=== PATIENT | female | born 1955 | race African-American/Black ===

== ENCOUNTER 2019-09-13 11:43 | Inpatient (IN) | payer MEDICARE, MEDICAID ==
[~2019-09-13] VITALS: Ht 160 cm; Wt 170.1 kg
[~2019-09-13 11:43] MED LIST: AMLO10TA80 PO; BACL-141 MT; BISA10SU62 RC; CHOL200026 PO; CLON0.1T PO; DOCU-150 PO; ESOM20CA PO; FERR325T6 PO; FOLI1POW MC; FURO-151 PO; HYDR100T26 PO; ISOS30TA12 PO; LISI40TA4 PO; METF-414 PO; METO100T16 PO; MOM MT; NA P230E RC; NEPVIT PO; TRAM50TA3 PO
[2019-09-13] MEDS ORDERED: SODIUM CHLORIDE 0.9% 1000ML BAG (SEPSIS BOLUS) IV ONE (12:30)
[2019-09-13 13:03] LABS: HEMATOCRIT. 33.5 % (36.0-48.0); HEMOGLOBIN. 10.7 g/dL (12.0-16.0); MEAN CORPUSCULAR HEMOGLOBIN 28.4 pg (28.0-32.0); MEAN CORPUSCULAR VOLUME 88.8 fL (81.0-99.0); MEAN PLATELET VOLUME 8.5 fl (7.4-10.4); PLATELET 214 x1000/uL (130-400); RED BLOOD CELL COUNT 3.77 mill/uL (4.2-5.4); RED CELL DISTRIBUTION WIDTH 17.7 % (11.6-14.6)
[2019-09-13 13:09] LABS: CHLORIDE 103 mEq/L (98-107)
[2019-09-13 13:11] LABS: INR 1.3; PROTHROMBIN TIME 13.6 sec (9.6-11.0)
[2019-09-13 13:25] LABS: CLARITY URINE CLEAR (CLEAR); COLOR URINE YELLOW (YELLOW); KETONES URINE NEGATIVE (NEGATIVE); LEUKOCYTE ESTERASE URINE 1+ (NEGATIVE); NITRITE URINE POSITIVE (NEGATIVE); OCCULT BLOOD URINE TRACE (NEGATIVE); PROTEIN URINE 2+ (NEGATIVE); SPECIFIC GRAVITY URINE 1.013 (1.005-1.030)
[2019-09-13 13:34] LABS: PLATELET ESTIMATE NORMAL
[2019-09-13] MEDS ORDERED: VANCOMYCIN 1 G PREMIX 200 ML IV ONE (14:45)
[2019-09-13] MEDS ORDERED: PIPERACILLIN/TAZ 3.375G PREMIX 50 ML IV ONE (14:45)
[2019-09-13] MEDS ORDERED: ACETAMINOPHEN 325MG TABLET PO ONE (16:00)
[2019-09-13] MEDS ORDERED: ASPIRIN 325MG EC TABLET PO ONE (16:15)
[2019-09-13] MEDS ORDERED: ACETAMINOPHEN 325MG TABLET PO PRN (16:30)
[2019-09-13] MEDS ORDERED: DOCUSATE SODIUM 100MG CAPSULE PO PRN (16:30)
[2019-09-13] MEDS ORDERED: CLONIDINE 0.2MG TABLET PO ONE (16:30)
[2019-09-13] MEDS ORDERED: AMLODIPINE 10MG TABLET PO ONE (16:30)
[2019-09-13] MEDS ORDERED: HYDRALAZINE HCL 100MG TABLET PO ONE (16:30)
[2019-09-13] MEDS ORDERED: LORAZEPAM 0.5MG TABLET PO PRN (16:30)
[2019-09-13] MEDS ORDERED: ONDANSETRON HCL 4MG/2ML INJ IV PRN (16:30)
[2019-09-13] MEDS ORDERED: NA PHOS,M-B/NA PHOS,DI-BA ENEMA 118ML PR PRN (16:30)
[2019-09-13] MEDS ORDERED: ACETAMINOPHEN 650MG SUPP PR PRN (16:30)
[2019-09-13] MEDS ORDERED: DIPHENHYDRAMINE 50MG/ML VIAL IV PRN (16:30)
[2019-09-13] MEDS ORDERED: IPRATROPIUM/ALBUTEROL 0.5-3(2.5)MG/3ML NEB NEB PRN (16:30)
[2019-09-13 17:29] LABS: BG CARBOXYHEMOGLOBIN 0.5 % (0.5-1.5); BG DEOXYHEMOGLOBIN 2.6 % (0.0-5.0); BG FRACTION INSPIRED OXYGEN 32; BG HCO3 ACT 29.7 mmol/L (22.0-26.0); BG OXYGEN SATURATION 97.4 % (92.0-98.5); BG OXYHEMOGLOBIN 96.9 % (94.0-97.0); BG PCO2 49.6 mmHg (35.0-45.0); BG PH 7.395 (7.350-7.450); BG PO2 97.2 mmHg (75.0-100.0); BG SAMPLE SITE RIGHT RADIAL; BG TOTAL HEMOGLOBIN 11.1 g/dL (12.0-18.0); BG VENT MODE NASAL CANNULA
[2019-09-13 20:00] VITALS: BP 148/67
[2019-09-13] MEDS ORDERED: CEFTRIAXONE 1 G PREMIX 50 ML IV SCH (20:00)
[2019-09-13] MEDS ORDERED: AZITHROMYCIN 500 MG in DEXT 5% WATER 250 ML IV SCH (20:00)
[2019-09-13] MEDS ORDERED: ENOXAPARIN 40MG/0.4ML SYR SUBCUT SCH (21:00)
[2019-09-13] MEDS: DEXT 5%/0.45% NACL 1000ML 1,000 ML IV SCH (23:32)
[2019-09-13] MEDS: FAMOTIDINE 20MG/2ML VIAL IV SCH (23:33)
[2019-09-14] MEDS: CLONIDINE 0.1MG TABLET PO PRN ×2 (00:26→09:00)
[2019-09-14 08:15] VITALS: BP 201/75
[2019-09-14] MEDS: DEXT 5%/0.45% NACL 1000ML 1,000 ML IV SCH ×2 (08:56→21:34)
[2019-09-14] MEDS: FAMOTIDINE 20MG/2ML VIAL IV SCH (08:56)
[2019-09-14] MEDS: ASPIRIN 81MG TABLET PO SCH (08:56)
[2019-09-14 11:10] LABS: BG BASE EXCESS 4.6 mmol/L (-2.0-2.0); BG CARBOXYHEMOGLOBIN 0.7 % (0.5-1.5); BG DEOXYHEMOGLOBIN 18.4 % (0.0-5.0); BG HCO3 ACT 29.4 mmol/L (22.0-26.0); BG METHEMOGLOBIN 0.1 % (0.0-1.5); BG OXYGEN SATURATION 81.5 % (92.0-98.5); BG OXYHEMOGLOBIN 80.8 % (94.0-97.0); BG PCO2 44.4 mmHg (35.0-45.0); BG PH 7.439 (7.350-7.450); BG PO2 45.5 mmHg (75.0-100.0); BG SAMPLE SITE RIGHT RADIAL; BG TOTAL HEMOGLOBIN 11.8 g/dL (12.0-18.0); BG VENT MODE ROOM AIR
[2019-09-14] MEDS: AMLODIPINE 5MG TABLET PO SCH (11:14)
[2019-09-14 12:00] VITALS: BP 124/91
[2019-09-14] MEDS: CEFTRIAXONE 1 G PREMIX 50 ML IV SCH (13:40)
[2019-09-14] MEDS ORDERED: FUROSEMIDE 40MG/4ML VIAL IVP ONE (14:00)
[2019-09-14] MEDS ORDERED: ALBUTEROL 6.7GM HFA INHALER ORI PRN (14:00)
[2019-09-14] MEDS ORDERED: AZITHROMYCIN 500 MG in DEXT 5% WATER 250 ML IV SCH (14:00)
[2019-09-14 14:25] LABS: BG BASE EXCESS -0.4 mmol/L (-2.0-2.0); BG CARBOXYHEMOGLOBIN 0.6 % (0.5-1.5); BG DEOXYHEMOGLOBIN 5.6 % (0.0-5.0); BG HCO3 ACT 23.6 mmol/L (22.0-26.0); BG OXYGEN SATURATION 94.4 % (92.0-98.5); BG OXYHEMOGLOBIN 93.8 % (94.0-97.0); BG PCO2 36.6 mmHg (35.0-45.0); BG PH 7.428 (7.350-7.450); BG PO2 70.4 mmHg (75.0-100.0); BG SAMPLE SITE RIGHT RADIAL; BG TOTAL HEMOGLOBIN 11.9 g/dL (12.0-18.0); BG VENT MODE NASAL CANNULA
[2019-09-14 15:09] LABS: D-DIMER 0.42 mg/L FEU (<0.50); INR 1.2; PROTHROMBIN TIME 13.1 sec (9.6-11.0)
[2019-09-14] MEDS: LOSARTAN POTASSIUM 25 MG TABLET PO SCH (15:20)
[2019-09-14] MEDS: HYDRALAZINE HCL 50MG TABLET PO SCH ×2 (15:21→21:34)
[2019-09-14] MEDS: METOPROLOL TARTRATE 25MG TABLET PO SCH ×2 (15:21→21:35)
[2019-09-14 15:24] LABS: CHLORIDE 98 mEq/L (98-107)
[2019-09-14 15:31] LABS: BASOPHILS % 1.3 % (0.0-2.0); EOSINOPHILS % 0.1 % (0.0-5.0); HEMATOCRIT. 36.8 % (36.0-48.0); HEMOGLOBIN. 11.8 g/dL (12.0-16.0); LYMPHOCYTES % 22.4 % (20.0-50.0); MEAN CORPUSCULAR HEMOGLOBIN 28.3 pg (28.0-32.0); MEAN CORPUSCULAR VOLUME 88.1 fL (81.0-99.0); MEAN PLATELET VOLUME 8.6 fl (7.4-10.4); MONOCYTES % 11.6 % (2.0-8.0); NEUTROPHILS % 64.6 % (40.0-76.0); PLATELET 185 x1000/uL (130-400); RED BLOOD CELL COUNT 4.18 mill/uL (4.2-5.4); RED CELL DISTRIBUTION WIDTH 16.9 % (11.6-14.6)
[2019-09-14 15:32] LABS: CREATINE KINASE 71 IU/L (26-192); LDL CHOLESTEROL 76 mg/dL (5-100)
[2019-09-14 15:33] LABS: CREATINE KINASE MB FRACTION < 1.0 ng/mL (0.5-3.6); HDL CHOLESTEROL 38 mg/dL (40-59); T4 FREE 1.19 ng/dL (0.76-1.46)
[2019-09-14] MEDS ORDERED: POTASSIUM CHLORIDE 20MEQ TABLET SR PO NR (16:00)
[2019-09-14 16:09] VITALS: BP 173/89
[2019-09-14] MEDS: ENOXAPARIN 120MG/0.8ML SYR SUBCUT SCH (18:09)
[2019-09-14 20:00] VITALS: BP 186/104
[2019-09-14] MEDS: FUROSEMIDE 40MG/4ML VIAL IVP SCH (21:34)
[2019-09-14] MEDS: ATORVASTATIN CALCIUM 40MG TABLET PO SCH (21:35)
[2019-09-15] VITALS (7 sets, daily range): BP systolic 131–189; BP diastolic 54–97
[2019-09-15] MEDS: HYDRALAZINE HCL 50MG TABLET PO SCH ×3 (05:54→21:32)
[2019-09-15] MEDS: HYDROCODONE/ACETAMINOPHEN 5/325MG TABLET PO PRN ×2 (05:55→17:22)
[2019-09-15] MEDS: ENOXAPARIN 120MG/0.8ML SYR SUBCUT SCH ×2 (05:56→16:37)
[2019-09-15] MEDS: DEXT 5%/0.45% NACL 1000ML 1,000 ML IV SCH (08:30)
[2019-09-15 09:01] LABS: BG BASE EXCESS 1.7 mmol/L (-2.0-2.0); BG CARBOXYHEMOGLOBIN 0.5 % (0.5-1.5); BG DEOXYHEMOGLOBIN 11.3 % (0.0-5.0); BG FRACTION INSPIRED OXYGEN 36; BG HCO3 ACT 26.1 mmol/L (22.0-26.0); BG METHEMOGLOBIN 0.3 % (0.0-1.5); BG OXYGEN SATURATION 88.6 % (92.0-98.5); BG OXYHEMOGLOBIN 87.9 % (94.0-97.0); BG PCO2 40.3 mmHg (35.0-45.0); BG PH 7.429 (7.350-7.450); BG PO2 54.4 mmHg (75.0-100.0); BG SAMPLE SITE RIGHT RADIAL; BG VENT MODE NASAL CANNULA
[2019-09-15] MEDS: ASPIRIN 81MG TABLET PO SCH (09:29)
[2019-09-15] MEDS: AMLODIPINE 5MG TABLET PO SCH (09:29)
[2019-09-15] MEDS: METOPROLOL TARTRATE 25MG TABLET PO SCH ×2 (09:30→21:31)
[2019-09-15] MEDS: LOSARTAN POTASSIUM 25 MG TABLET PO SCH (09:30)
[2019-09-15] MEDS: FAMOTIDINE 20MG/2ML VIAL IV SCH (09:31)
[2019-09-15] MEDS: FUROSEMIDE 40MG/4ML VIAL IVP SCH ×2 (11:30→21:31)
[2019-09-15 11:51] LABS: BASOPHILS % 1.2 % (0.0-2.0); EOSINOPHILS % 0.1 % (0.0-5.0); HEMATOCRIT. 35.3 % (36.0-48.0); HEMOGLOBIN. 11.5 g/dL (12.0-16.0); LYMPHOCYTES % 29.7 % (20.0-50.0); MEAN CORPUSCULAR HEMOGLOBIN 28.4 pg (28.0-32.0); MEAN CORPUSCULAR VOLUME 87.3 fL (81.0-99.0); MEAN PLATELET VOLUME 8.4 fl (7.4-10.4); MONOCYTES % 5.4 % (2.0-8.0); NEUTROPHILS % 63.6 % (40.0-76.0); PLATELET 168 x1000/uL (130-400); RED BLOOD CELL COUNT 4.04 mill/uL (4.2-5.4); RED CELL DISTRIBUTION WIDTH 17.2 % (11.6-14.6)
[2019-09-15 12:19] LABS: CHLORIDE 95 mEq/L (98-107)
[2019-09-15 12:30] LABS: PHOSPHORUS 2.3 mg/dL (2.5-4.9)
[2019-09-15] MEDS: CEFTRIAXONE 1 G PREMIX 50 ML IV SCH (14:44)
[2019-09-15] MEDS ORDERED: POTASSIUM CHLORIDE 20MEQ TABLET SR PO NR (16:00)
[2019-09-15] MEDS: CLONIDINE 0.1MG TABLET PO PRN (17:17)
[2019-09-15 17:50] LABS: BG BASE EXCESS 8.1 mmol/L (-2.0-2.0); BG CARBOXYHEMOGLOBIN 0.6 % (0.5-1.5); BG DEOXYHEMOGLOBIN 19.8 % (0.0-5.0); BG FRACTION INSPIRED OXYGEN 21; BG HCO3 ACT 32.5 mmol/L (22.0-26.0); BG METHEMOGLOBIN 0.1 % (0.0-1.5); BG OXYGEN SATURATION 80.1 % (92.0-98.5); BG OXYHEMOGLOBIN 79.5 % (94.0-97.0); BG PCO2 44.4 mmHg (35.0-45.0); BG PH 7.483 (7.350-7.450); BG PO2 42.4 mmHg (75.0-100.0); BG SAMPLE SITE LEFT RADIAL; BG TOTAL HEMOGLOBIN 12.6 g/dL (12.0-18.0); BG VENT MODE ROOM AIR
[2019-09-15] MEDS ORDERED: MAGNESIUM 2 G PREMIX 50 ML IV NR (18:00)
[2019-09-15] MEDS: ATORVASTATIN CALCIUM 40MG TABLET PO SCH (21:32)
[2019-09-16] VITALS (7 sets, daily range): BP systolic 149–173; BP diastolic 71–93
[2019-09-16] MEDS: CLONIDINE 0.1MG TABLET PO PRN ×2 (01:02→22:41)
[2019-09-16] MEDS: ENOXAPARIN 120MG/0.8ML SYR SUBCUT SCH ×2 (06:00→18:12)
[2019-09-16] MEDS: HYDRALAZINE HCL 50MG TABLET PO SCH ×3 (06:00→22:41)
[2019-09-16 06:38] LABS: HEMATOCRIT. 38.5 % (36.0-48.0); HEMOGLOBIN. 12.6 g/dL (12.0-16.0); MEAN CORPUSCULAR HEMOGLOBIN 28.5 pg (28.0-32.0); MEAN CORPUSCULAR VOLUME 86.8 fL (81.0-99.0); MEAN PLATELET VOLUME 8.9 fl (7.4-10.4); PLATELET 138 x1000/uL (130-400); RED BLOOD CELL COUNT 4.43 mill/uL (4.2-5.4); RED CELL DISTRIBUTION WIDTH 17.1 % (11.6-14.6)
[2019-09-16 06:51] LABS: CHLORIDE 94 mEq/L (98-107)
[2019-09-16 08:09] LABS: PLATELET ESTIMATE NORMAL
[2019-09-16] MEDS: FUROSEMIDE 40MG/4ML VIAL IVP SCH ×2 (09:47→22:42)
[2019-09-16] MEDS: METOPROLOL TARTRATE 25MG TABLET PO SCH ×2 (09:47→22:42)
[2019-09-16] MEDS: FAMOTIDINE 20MG/2ML VIAL IV SCH (09:47)
[2019-09-16] MEDS: LOSARTAN POTASSIUM 25 MG TABLET PO SCH (09:48)
[2019-09-16] MEDS: ASPIRIN 81MG TABLET PO SCH (09:48)
[2019-09-16] MEDS: AMLODIPINE 5MG TABLET PO SCH (09:58)
[2019-09-16 10:34] LABS: BG BASE EXCESS 8.5 mmol/L (-2.0-2.0); BG CARBOXYHEMOGLOBIN 1.1 % (0.5-1.5); BG DEOXYHEMOGLOBIN 18.4 % (0.0-5.0); BG FRACTION INSPIRED OXYGEN 21; BG HCO3 ACT 33.2 mmol/L (22.0-26.0); BG METHEMOGLOBIN 0.1 % (0.0-1.5); BG OXYGEN SATURATION 81.4 % (92.0-98.5); BG OXYHEMOGLOBIN 80.4 % (94.0-97.0); BG PCO2 46.5 mmHg (35.0-45.0); BG PH 7.472 (7.350-7.450); BG SAMPLE SITE LEFT RADIAL; BG TOTAL HEMOGLOBIN 12.6 g/dL (12.0-18.0); BG VENT MODE ROOM AIR
[2019-09-16] MEDS: CEFTRIAXONE 1 G PREMIX 50 ML IV SCH (13:51)
[2019-09-16 13:53] LABS: COVID-19 PCR RNA DETECTED
[2019-09-16] MEDS: ATORVASTATIN CALCIUM 40MG TABLET PO SCH (22:42)
[2019-09-17] VITALS: BP 137/79
[2019-09-17 04:00] VITALS: BP 149/83
[2019-09-17] MEDS: HYDRALAZINE HCL 50MG TABLET PO SCH ×4 (07:12→22:17)
[2019-09-17] MEDS: ENOXAPARIN 120MG/0.8ML SYR SUBCUT SCH ×2 (07:14→17:24)
[2019-09-17 08:00] VITALS: BP 155/70
[2019-09-17] MEDS: FUROSEMIDE 40MG/4ML VIAL IVP SCH ×2 (09:53→21:10)
[2019-09-17] MEDS: FAMOTIDINE 20MG/2ML VIAL IV SCH (09:53)
[2019-09-17] MEDS: ASPIRIN 81MG TABLET PO SCH (09:54)
[2019-09-17] MEDS: METOPROLOL TARTRATE 25MG TABLET PO SCH ×2 (09:54→21:11)
[2019-09-17] MEDS: LOSARTAN POTASSIUM 25 MG TABLET PO SCH (09:55)
[2019-09-17] MEDS: AMLODIPINE 5MG TABLET PO SCH (09:55)
[2019-09-17] MEDS ORDERED: SODIUM BICARBONATE 4% (2.4MEQ) 5ML VIAL IV ONE (10:06)
[2019-09-17] MEDS ORDERED: LIDOCAINE HCL 1% 20ML VIAL (Pyxis) INJ ONE (10:06)
[2019-09-17 12:00] VITALS: BP 158/83
[2019-09-17 12:14] LABS: BASOPHILS % 0.6 % (0.0-2.0); HEMATOCRIT. 35.9 % (36.0-48.0); HEMOGLOBIN. 11.6 g/dL (12.0-16.0); LYMPHOCYTES % 16.8 % (20.0-50.0); MEAN CORPUSCULAR HEMOGLOBIN 28.2 pg (28.0-32.0); MEAN PLATELET VOLUME 9.8 fl (7.4-10.4); MONOCYTES % 6.4 % (2.0-8.0); NEUTROPHILS % 76.2 % (40.0-76.0); PLATELET 149 x1000/uL (130-400); RED BLOOD CELL COUNT 4.12 mill/uL (4.2-5.4); RED CELL DISTRIBUTION WIDTH 16.9 % (11.6-14.6)
[2019-09-17 12:52] LABS: CHLORIDE 95 mEq/L (98-107)
[2019-09-17] MEDS: CEFTRIAXONE 1 G PREMIX 50 ML IV SCH (13:53)
[2019-09-17] MEDS ORDERED: POTASSIUM CHLORIDE 20MEQ TABLET SR PO NR (14:00)
[2019-09-17 16:00] VITALS: BP 171/89
[2019-09-17 16:36] LABS: COVID-19 PCR RNA DETECTED
[2019-09-17] MEDS: CLONIDINE 0.1MG TABLET PO PRN (17:22)
[2019-09-17 20:00] VITALS: BP 176/97
[2019-09-17] MEDS: ATORVASTATIN CALCIUM 40MG TABLET PO SCH (21:10)
[2019-09-18] VITALS (7 sets, daily range): BP systolic 116–173; BP diastolic 80–98
[2019-09-18] MEDS: HYDRALAZINE HCL 50MG TABLET PO SCH ×3 (05:04→21:12)
[2019-09-18] MEDS: ENOXAPARIN 120MG/0.8ML SYR SUBCUT SCH ×2 (05:05→17:07)
[2019-09-18 06:25] LABS: EOSINOPHILS % 0.3 % (0.0-5.0); HEMATOCRIT. 35.8 % (36.0-48.0); HEMOGLOBIN. 11.7 g/dL (12.0-16.0); LYMPHOCYTES % 21.5 % (20.0-50.0); MEAN CORPUSCULAR HEMOGLOBIN 28.5 pg (28.0-32.0); MEAN CORPUSCULAR VOLUME 87.3 fL (81.0-99.0); MONOCYTES % 6.5 % (2.0-8.0); NEUTROPHILS % 70.7 % (40.0-76.0); PLATELET 154 x1000/uL (130-400); RED CELL DISTRIBUTION WIDTH 17.1 % (11.6-14.6)
[2019-09-18 06:31] LABS: CHLORIDE 95 mEq/L (98-107)
[2019-09-18] MEDS: METOPROLOL TARTRATE 25MG TABLET PO SCH ×2 (10:10→21:12)
[2019-09-18] MEDS: LOSARTAN POTASSIUM 25 MG TABLET PO SCH (10:10)
[2019-09-18] MEDS: FAMOTIDINE 20MG/2ML VIAL IV SCH (10:10)
[2019-09-18] MEDS: FUROSEMIDE 40MG/4ML VIAL IVP SCH ×2 (10:10→21:12)
[2019-09-18] MEDS: ASPIRIN 81MG TABLET PO SCH (10:10)
[2019-09-18] MEDS: AMLODIPINE 5MG TABLET PO SCH (10:10)
[2019-09-18] MEDS: CEFTRIAXONE 1 G PREMIX 50 ML IV SCH (13:39)
[2019-09-18] MEDS: CLONIDINE 0.1MG TABLET PO PRN (17:31)
[2019-09-18] MEDS: ATORVASTATIN CALCIUM 40MG TABLET PO SCH (21:12)
[2019-09-19 00:23] VITALS: BP 175/94
[2019-09-19] MEDS: CLONIDINE 0.1MG TABLET PO PRN (01:06)
[2019-09-19 04:00] VITALS: BP 177/92
[2019-09-19] MEDS: HYDRALAZINE HCL 50MG TABLET PO SCH (05:57)
[2019-09-19] MEDS: ENOXAPARIN 120MG/0.8ML SYR SUBCUT SCH ×2 (05:58→18:08)
[2019-09-19 08:00] VITALS: BP 175/94
[2019-09-19 10:12] LABS: BASOPHILS % 1.3 % (0.0-2.0); EOSINOPHILS % 0.1 % (0.0-5.0); HEMATOCRIT. 34.2 % (36.0-48.0); LYMPHOCYTES % 14.4 % (20.0-50.0); MEAN CORPUSCULAR HEMOGLOBIN 27.9 pg (28.0-32.0); MEAN CORPUSCULAR VOLUME 86.8 fL (81.0-99.0); MEAN PLATELET VOLUME 10.2 fl (7.4-10.4); MONOCYTES % 5.6 % (2.0-8.0); NEUTROPHILS % 78.6 % (40.0-76.0); PLATELET 185 x1000/uL (130-400); RED BLOOD CELL COUNT 3.94 mill/uL (4.2-5.4); RED CELL DISTRIBUTION WIDTH 17.1 % (11.6-14.6)
[2019-09-19 10:17] LABS: CHLORIDE 99 mEq/L (98-107)
[2019-09-19] MEDS: LOSARTAN POTASSIUM 25 MG TABLET PO SCH (10:24)
[2019-09-19] MEDS: AMLODIPINE 5MG TABLET PO SCH (10:24)
[2019-09-19] MEDS: ASPIRIN 81MG TABLET PO SCH (10:24)
[2019-09-19] MEDS: METOPROLOL TARTRATE 25MG TABLET PO SCH (10:25)
[2019-09-19] MEDS: FAMOTIDINE 20MG/2ML VIAL IV SCH (10:25)
[2019-09-19] MEDS: FUROSEMIDE 40MG/4ML VIAL IVP SCH ×2 (10:25→21:11)
[2019-09-19] MEDS ORDERED: MAGNESIUM 2 G PREMIX 50 ML IV SCH (12:00)
[2019-09-19 12:29] VITALS: BP 137/80
[2019-09-19] MEDS: POTASSIUM CHLORIDE 20MEQ TABLET SR PO SCH (13:39)
[2019-09-19] MEDS: HYDRALAZINE HCL 100MG TABLET PO SCH ×2 (13:46→21:10)
[2019-09-19 17:15] VITALS: BP 136/91
[2019-09-19 20:00] VITALS: BP 163/89
[2019-09-19] MEDS: ATORVASTATIN CALCIUM 40MG TABLET PO SCH (21:10)
[2019-09-19] MEDS: LOSARTAN POTASSIUM 50 MG TABLET PO SCH (21:10)
[2019-09-19] MEDS: METOPROLOL TARTRATE 50MG TABLET PO SCH (21:11)
[2019-09-20] VITALS: BP 144/85
[2019-09-20 04:00] VITALS: BP 141/81
[2019-09-20] MEDS: HYDRALAZINE HCL 100MG TABLET PO SCH ×3 (05:27→21:25)
[2019-09-20] MEDS: ENOXAPARIN 120MG/0.8ML SYR SUBCUT SCH ×2 (05:27→17:35)
[2019-09-20 06:21] LABS: BASOPHILS % 1.2 % (0.0-2.0); EOSINOPHILS % 0.7 % (0.0-5.0); HEMATOCRIT. 34.3 % (36.0-48.0); LYMPHOCYTES % 20.9 % (20.0-50.0); MEAN CORPUSCULAR HEMOGLOBIN 28.1 pg (28.0-32.0); MEAN CORPUSCULAR VOLUME 87.4 fL (81.0-99.0); MEAN PLATELET VOLUME 9.7 fl (7.4-10.4); MONOCYTES % 6.1 % (2.0-8.0); NEUTROPHILS % 71.1 % (40.0-76.0); PLATELET 210 x1000/uL (130-400); RED BLOOD CELL COUNT 3.93 mill/uL (4.2-5.4); RED CELL DISTRIBUTION WIDTH 17.3 % (11.6-14.6)
[2019-09-20 06:34] LABS: CHLORIDE 100 mEq/L (98-107)
[2019-09-20 08:00] VITALS: BP 181/88
[2019-09-20] MEDS: ASPIRIN 81MG TABLET PO SCH (09:46)
[2019-09-20] MEDS: FAMOTIDINE 20MG/2ML VIAL IV SCH (09:46)
[2019-09-20] MEDS: FUROSEMIDE 40MG/4ML VIAL IVP SCH ×2 (09:46→21:23)
[2019-09-20] MEDS: POTASSIUM CHLORIDE 20MEQ TABLET SR PO SCH (09:46)
[2019-09-20] MEDS: AMLODIPINE 5MG TABLET PO SCH ×2 (09:52→21:25)
[2019-09-20] MEDS: METOPROLOL TARTRATE 50MG TABLET PO SCH ×2 (09:52→21:24)
[2019-09-20] MEDS: LOSARTAN POTASSIUM 50 MG TABLET PO SCH ×2 (09:52→21:24)
[2019-09-20] MEDS ORDERED: HYDRALAZINE 20MG/ML VIAL IV SCH (11:00)
[2019-09-20 12:00] VITALS: BP 141/81
[2019-09-20 15:01] LABS: BG BASE EXCESS 6.7 mmol/L (-2.0-2.0); BG CARBOXYHEMOGLOBIN 0.9 % (0.5-1.5); BG DEOXYHEMOGLOBIN 12.4 % (0.0-5.0); BG FRACTION INSPIRED OXYGEN 21; BG HCO3 ACT 31.1 mmol/L (22.0-26.0); BG OXYGEN SATURATION 87.5 % (92.0-98.5); BG OXYHEMOGLOBIN 86.7 % (94.0-97.0); BG PCO2 43.7 mmHg (35.0-45.0); BG PO2 52.7 mmHg (75.0-100.0); BG SAMPLE SITE RIGHT RADIAL; BG TOTAL HEMOGLOBIN 12.3 g/dL (12.0-18.0); BG VENT MODE ROOM AIR
[2019-09-20 16:00] VITALS: BP 136/81
[2019-09-20] MEDS: GUAIFENESIN 200MG/10ML SUGAR FREE UDC PO PRN (17:35)
[2019-09-20 20:00] VITALS: BP 179/86
[2019-09-20] MEDS: ATORVASTATIN CALCIUM 40MG TABLET PO SCH (21:23)
[2019-09-21] VITALS: BP 144/96
[2019-09-21 04:00] VITALS: BP 161/94
[2019-09-21] MEDS: ENOXAPARIN 120MG/0.8ML SYR SUBCUT SCH ×2 (04:52→17:12)
[2019-09-21] MEDS: HYDRALAZINE HCL 100MG TABLET PO SCH ×3 (04:52→21:27)
[2019-09-21 06:28] LABS: CHLORIDE 98 mEq/L (98-107)
[2019-09-21 06:29] LABS: HEMATOCRIT 37.3 % (36.0-48.0); HEMOGLOBIN 11.8 g/dL (12.0-16.0); MEAN CORPUSCULAR HEMOGLOBIN 27.4 pg (28.0-32.0); MEAN CORPUSCULAR VOLUME 86.8 fL (81.0-99.0); PLATELET 260 x1000/uL (130-400); RED BLOOD CELL COUNT 4.29 mill/uL (4.2-5.4); RED CELL DISTRIBUTION WIDTH 17.4 % (11.6-14.6)
[2019-09-21 08:00] VITALS: BP 164/74
[2019-09-21] MEDS: FAMOTIDINE 20MG/2ML VIAL IV SCH (09:31)
[2019-09-21] MEDS: GUAIFENESIN 200MG/10ML SUGAR FREE UDC PO PRN (09:31)
[2019-09-21] MEDS: LOSARTAN POTASSIUM 50 MG TABLET PO SCH ×2 (09:31→21:27)
[2019-09-21] MEDS: FUROSEMIDE 40MG/4ML VIAL IVP SCH ×2 (09:31→21:26)
[2019-09-21] MEDS: ASPIRIN 81MG TABLET PO SCH (09:31)
[2019-09-21] MEDS: POTASSIUM CHLORIDE 20MEQ TABLET SR PO SCH (09:31)
[2019-09-21] MEDS: METOPROLOL TARTRATE 50MG TABLET PO SCH ×2 (09:32→21:27)
[2019-09-21] MEDS: AMLODIPINE 5MG TABLET PO SCH ×2 (09:33→21:27)
[2019-09-21 12:00] VITALS: BP 142/88
[2019-09-21 16:00] VITALS: BP 148/75
[2019-09-21] MEDS: ISOSORBIDE MONONITRATE 30MG TABLET SR 24HR PO SCH (17:12)
[2019-09-21 20:00] VITALS: BP 152/86
[2019-09-21] MEDS: ATORVASTATIN CALCIUM 40MG TABLET PO SCH (21:27)
[2019-09-22] VITALS: BP 149/80
[2019-09-22 04:00] VITALS: BP 104/69
[2019-09-22] MEDS: HYDRALAZINE HCL 100MG TABLET PO SCH ×3 (05:12→21:40)
[2019-09-22] MEDS: ENOXAPARIN 120MG/0.8ML SYR SUBCUT SCH ×2 (05:47→17:08)
[2019-09-22 08:00] VITALS: BP 167/92
[2019-09-22] MEDS: FUROSEMIDE 40MG/4ML VIAL IVP SCH ×2 (09:29→21:39)
[2019-09-22] MEDS: AMLODIPINE 5MG TABLET PO SCH ×2 (09:29→21:40)
[2019-09-22] MEDS: ASPIRIN 81MG TABLET PO SCH (09:29)
[2019-09-22] MEDS: GUAIFENESIN 200MG/10ML SUGAR FREE UDC PO PRN (09:29)
[2019-09-22] MEDS: POTASSIUM CHLORIDE 20MEQ TABLET SR PO SCH (09:29)
[2019-09-22] MEDS: FAMOTIDINE 20MG/2ML VIAL IV SCH (09:29)
[2019-09-22] MEDS: ISOSORBIDE MONONITRATE 30MG TABLET SR 24HR PO SCH (09:30)
[2019-09-22] MEDS: METOPROLOL TARTRATE 50MG TABLET PO SCH ×2 (09:30→21:40)
[2019-09-22] MEDS: LOSARTAN POTASSIUM 50 MG TABLET PO SCH ×2 (09:30→21:40)
[2019-09-22 12:00] VITALS: BP 130/81
[2019-09-22 14:51] LABS: BASOPHILS % 1.3 % (0.0-2.0); EOSINOPHILS % 2.3 % (0.0-5.0); HEMOGLOBIN. 10.8 g/dL (12.0-16.0); LYMPHOCYTES % 23.4 % (20.0-50.0); MEAN CORPUSCULAR HEMOGLOBIN 27.6 pg (28.0-32.0); MEAN CORPUSCULAR VOLUME 86.5 fL (81.0-99.0); MEAN PLATELET VOLUME 9.3 fl (7.4-10.4); MONOCYTES % 10.2 % (2.0-8.0); NEUTROPHILS % 62.8 % (40.0-76.0); PLATELET 319 x1000/uL (130-400); RED BLOOD CELL COUNT 3.93 mill/uL (4.2-5.4); RED CELL DISTRIBUTION WIDTH 17.5 % (11.6-14.6)
[2019-09-22 15:44] LABS: CHLORIDE 99 mEq/L (98-107)
[2019-09-22 16:00] VITALS: BP 143/69
[2019-09-22 20:00] VITALS: BP 141/67
[2019-09-22] MEDS: ATORVASTATIN CALCIUM 40MG TABLET PO SCH (21:39)
[2019-09-23] VITALS: BP 125/70
[2019-09-23 04:00] VITALS: BP 143/78
[2019-09-23] MEDS: HYDRALAZINE HCL 100MG TABLET PO SCH ×2 (05:40→14:17)
[2019-09-23] MEDS: ENOXAPARIN 120MG/0.8ML SYR SUBCUT SCH (05:40)
[2019-09-23 08:00] VITALS: BP 150/87
[2019-09-23] MEDS: FAMOTIDINE 20MG/2ML VIAL IV SCH (09:28)
[2019-09-23] MEDS: METOPROLOL TARTRATE 50MG TABLET PO SCH (09:28)
[2019-09-23] MEDS: ASPIRIN 81MG TABLET PO SCH (09:28)
[2019-09-23] MEDS: POTASSIUM CHLORIDE 20MEQ TABLET SR PO SCH (09:28)
[2019-09-23] MEDS: ISOSORBIDE MONONITRATE 30MG TABLET SR 24HR PO SCH (09:28)
[2019-09-23] MEDS: FUROSEMIDE 40MG/4ML VIAL IVP SCH (09:28)
[2019-09-23] MEDS: LOSARTAN POTASSIUM 50 MG TABLET PO SCH (09:29)
[2019-09-23] MEDS: AMLODIPINE 5MG TABLET PO SCH (09:29)
[2019-09-23 12:10] VITALS: BP 130/74
[2019-09-23 15:15] LABS: BASOPHILS % 1.9 % (0.0-2.0); EOSINOPHILS % 2.3 % (0.0-5.0); HEMATOCRIT. 35.7 % (36.0-48.0); HEMOGLOBIN. 11.5 g/dL (12.0-16.0); LYMPHOCYTES % 21.3 % (20.0-50.0); MEAN CORPUSCULAR HEMOGLOBIN 27.8 pg (28.0-32.0); MEAN CORPUSCULAR VOLUME 86.7 fL (81.0-99.0); MEAN PLATELET VOLUME 9.5 fl (7.4-10.4); MONOCYTES % 11.2 % (2.0-8.0); NEUTROPHILS % 63.3 % (40.0-76.0); PLATELET 371 x1000/uL (130-400); RED BLOOD CELL COUNT 4.12 mill/uL (4.2-5.4)
[2019-09-23 15:22] VITALS: BP 130/74
[2019-09-23 15:23] LABS: CHLORIDE 99 mEq/L (98-107)
== END 2019-09-23 16:15 | DRG 871 ==
LOC: ER 11:43 → EEVIPCON 15:20 → UNDOADMIN 15:20 → 7EST 15:20 → ENRESERV 15:41 → SUPCPDRO 16:19 → UNDODISIN 09-23 16:15
PROVIDERS: ADMIT Internal Medicine; ATTEND Internal Medicine
PROC: 02HV33Z Insertion of Infusion Device into Superior Vena Cava, Percutaneous Approach (ICD-10-PCS; principal; 2019-09-17)
PROC: B548ZZA Ultrasonography of Superior Vena Cava, Guidance (ICD-10-PCS; 2019-09-17)
DX: A41.9 Sepsis, unspecified organism (principal); U07.1 COVID-19; I21.4 Non-ST elevation (NSTEMI) myocardial infarction; J96.91 Respiratory failure, unspecified with hypoxia; J12.89 Other viral pneumonia; I50.43 Acute on chronic combined systolic (congestive) and diastolic (congestive) heart failure; I69.354 Hemiplegia and hemiparesis following cerebral infarction affecting left non-dominant side; D68.59 Other primary thrombophilia; I13.0 Hypertensive heart and chronic kidney disease with heart failure and stage 1 through stage 4 chronic kidney disease, or unspecified chronic kidney disease; N39.0 Urinary tract infection, site not specified; I25.10 Atherosclerotic heart disease of native coronary artery without angina pectoris; I48.91 Unspecified atrial fibrillation; D72.810 Lymphocytopenia; N18.9 Chronic kidney disease, unspecified; E11.22 Type 2 diabetes mellitus with diabetic chronic kidney disease; E78.5 Hyperlipidemia, unspecified; M10.9 Gout, unspecified; F03.90 Unspecified dementia, unspecified severity, without behavioral disturbance, psychotic disturbance, mood disturbance, and anxiety; E78.00 Pure hypercholesterolemia, unspecified; D64.9 Anemia, unspecified; B96.20 Unspecified Escherichia coli [E. coli] as the cause of diseases classified elsewhere; G89.29 Other chronic pain; Z79.899 Other long term (current) drug therapy
CPT/HCPCS: 36415; 36600; 71045; 76937; 80048; 80053; 80061; 81003; 82375; 82550; 82553; 82805; 82962; 83605; 83735; 83880; 84100; 84145; 84439; 84443; 84484; 85025; 85027; 85379; 86141; 87077; 87186; 87420; 87635; 87804; 93005; 99285; C1725; J0360; J0456; J0696; J1650; J1940; J2543; J3475; J3490; J7030; J7060

== ENCOUNTER 2020-10-25 15:17 | Inpatient (IN) | payer MEDICARE, MEDICAID ==
[~2020-10-25] VITALS: Ht 160 cm; Wt 104.6 kg
[~2020-10-25 15:17] MED LIST changes: +LISI40TA13 PO; -LISI40TA4 PO
[2020-10-25 16:06] LABS: BASOPHILS % 0.6 % (0.0-2.0); EOSINOPHILS % 1.1 % (0.0-5.0); HEMATOCRIT. 41.7 % (36.0-48.0); HEMOGLOBIN. 13.5 g/dL (12.0-16.0); LYMPHOCYTES % 13.6 % (20.0-50.0); MEAN CORPUSCULAR HEMOGLOBIN 29.2 pg (28.0-32.0); MEAN CORPUSCULAR VOLUME 90.2 fL (81.0-99.0); MEAN PLATELET VOLUME 7.7 fl (7.4-10.4); MONOCYTES % 7.3 % (2.0-8.0); NEUTROPHILS % 77.4 % (40.0-76.0); PLATELET 223 x1000/uL (130-400); RED BLOOD CELL COUNT 4.62 mill/uL (4.2-5.4); RED CELL DISTRIBUTION WIDTH 18.4 % (11.6-14.6)
[2020-10-25 16:10] LABS: CHLORIDE 98 mEq/L (98-107)
[2020-10-25 16:14] LABS: INR 1.3
[2020-10-25] MEDS ORDERED: SODIUM CHLORIDE 0.9% 1,000 ML IV ONE (17:15)
[2020-10-25] MEDS ORDERED: DOCUSATE SODIUM 100MG CAPSULE PO PRN (23:00)
[2020-10-25] MEDS ORDERED: SODIUM CHLORIDE 0.9% 1,000 ML IV SCH (23:00)
[2020-10-25] MEDS ORDERED: ENOXAPARIN 40MG/0.4ML SYR SUBCUT SCH (23:00)
[2020-10-25] MEDS ORDERED: DIPHENHYDRAMINE 50MG/ML VIAL IV PRN (23:00)
[2020-10-25] MEDS ORDERED: LORAZEPAM 2MG/ML CPJ IV PRN (23:00)
[2020-10-25] MEDS ORDERED: ONDANSETRON HCL 4MG/2ML INJ IV PRN (23:00)
[2020-10-26] VITALS: BP 146/96
[2020-10-26 00:30] VITALS: BP 145/96
[2020-10-26] MEDS: ENOXAPARIN 30MG/0.3ML SYR SUBCUT SCH ×2 (01:30→12:17)
[2020-10-26 04:00] VITALS: BP 171/95
[2020-10-26] MEDS: FERROUS SULFATE 325MG TABLET PO SCH (08:53)
[2020-10-26] MEDS: ASPIRIN 81MG EC TABLET PO SCH (08:53)
[2020-10-26] MEDS: FOLIC ACID 1MG TABLET PO SCH (08:53)
[2020-10-26] MEDS ORDERED: ENOXAPARIN 80MG/0.8ML SYR SUBCUT NR (13:00)
[2020-10-26] MEDS: LOSARTAN POTASSIUM 100 MG TABLET PO SCH (15:37)
[2020-10-26 20:00] VITALS: BP 147/78
[2020-10-26] MEDS: ENOXAPARIN 100MG/ML SYR SUBCUT SCH (21:16)
[2020-10-27] VITALS: BP 149/75
[2020-10-27 04:00] VITALS: BP 141/78
[2020-10-27] MEDS: LOSARTAN POTASSIUM 100 MG TABLET PO SCH (09:26)
[2020-10-27] MEDS: FOLIC ACID 1MG TABLET PO SCH (09:26)
[2020-10-27] MEDS: ASPIRIN 81MG EC TABLET PO SCH (09:26)
[2020-10-27] MEDS: ENOXAPARIN 100MG/ML SYR SUBCUT SCH ×2 (09:28→21:30)
[2020-10-27] MEDS: FERROUS SULFATE 325MG TABLET PO SCH (09:28)
[2020-10-27 09:47] VITALS: BP 157/85
[2020-10-27] MEDS: IPRATROPIUM/ALBUTEROL 0.5-3(2.5)MG/3ML NEB NEB PRN (10:25)
[2020-10-27 11:55] LABS: BG BASE EXCESS 2.9 mmol/L (-2.0-2.0); BG CARBOXYHEMOGLOBIN 1.4 % (0.5-1.5); BG DEOXYHEMOGLOBIN 14.2 % (0.0-5.0); BG FRACTION INSPIRED OXYGEN 21; BG HCO3 ACT 28.9 mmol/L (22.0-26.0); BG METHEMOGLOBIN 0.2 % (0.0-1.5); BG OXYGEN SATURATION 85.6 % (92.0-98.5); BG OXYHEMOGLOBIN 84.2 % (94.0-97.0); BG PCO2 49.6 mmHg (35.0-45.0); BG PH 7.383 (7.350-7.450); BG PO2 49.9 mmHg (75.0-100.0); BG SAMPLE SITE RIGHT RADIAL; BG TOTAL HEMOGLOBIN 14.1 g/dL (12.0-18.0); BG VENT MODE ROOM AIR
[2020-10-27 12:25] VITALS: BP 154/82
[2020-10-27] MEDS ORDERED: FUROSEMIDE 40MG/4ML VIAL IVP SCH (12:30)
[2020-10-27] MEDS: HYDROCODONE/ACETAMINOPHEN 5/325MG TABLET PO PRN (15:12)
[2020-10-27] MEDS ORDERED: DEXTROSE 50% WATER 50ML SYRINGE IV PRN (16:15)
[2020-10-27] MEDS: BLOOD SUGAR DIAGNOSTIC STRIP TEST SCH ×2 (17:50→21:00)
[2020-10-27] MEDS: INSULIN LISPRO 100 UNITS/ML SUBCUT SCH ×2 (18:51→21:00)
[2020-10-27 20:00] VITALS: BP 169/95
[2020-10-27 23:17] LABS: HEMATOCRIT. 40.6 % (36.0-48.0); HEMOGLOBIN. 13.4 g/dL (12.0-16.0); MEAN CORPUSCULAR HEMOGLOBIN 29.6 pg (28.0-32.0); MEAN CORPUSCULAR VOLUME 89.4 fL (81.0-99.0); MEAN PLATELET VOLUME 7.9 fl (7.4-10.4); PLATELET 207 x1000/uL (130-400); RED BLOOD CELL COUNT 4.54 mill/uL (4.2-5.4); RED CELL DISTRIBUTION WIDTH 18.3 % (11.6-14.6)
[2020-10-27 23:24] LABS: CHLORIDE 103 mEq/L (98-107)
[2020-10-28] VITALS: BP 160/74
[2020-10-28 02:04] LABS: PLATELET ESTIMATE NORMAL
[2020-10-28] MEDS: HYDROCODONE/ACETAMINOPHEN 5/325MG TABLET PO PRN (04:49)
[2020-10-28 05:44] LABS: HEMATOCRIT. 42.5 % (36.0-48.0); HEMOGLOBIN. 13.9 g/dL (12.0-16.0); MEAN CORPUSCULAR HEMOGLOBIN 29.4 pg (28.0-32.0); MEAN CORPUSCULAR VOLUME 90.2 fL (81.0-99.0); MEAN PLATELET VOLUME 8.5 fl (7.4-10.4); PLATELET 221 x1000/uL (130-400); RED BLOOD CELL COUNT 4.71 mill/uL (4.2-5.4); RED CELL DISTRIBUTION WIDTH 18.7 % (11.6-14.6)
[2020-10-28 05:49] LABS: CHLORIDE 101 mEq/L (98-107)
[2020-10-28] MEDS: BLOOD SUGAR DIAGNOSTIC STRIP TEST SCH ×4 (05:53→21:13)
[2020-10-28] MEDS: INSULIN LISPRO 100 UNITS/ML SUBCUT SCH ×4 (05:53→21:00)
[2020-10-28] MEDS ORDERED: LIDOCAINE HCL 1% 20ML VIAL (Pyxis) INJ ONE (07:49)
[2020-10-28 07:50] VITALS: BP 158/84
[2020-10-28] MEDS: FERROUS SULFATE 325MG TABLET PO SCH (08:21)
[2020-10-28] MEDS: FOLIC ACID 1MG TABLET PO SCH (08:21)
[2020-10-28] MEDS: ASPIRIN 81MG EC TABLET PO SCH (08:21)
[2020-10-28] MEDS: LOSARTAN POTASSIUM 100 MG TABLET PO SCH (08:21)
[2020-10-28] MEDS: ENOXAPARIN 100MG/ML SYR SUBCUT SCH ×2 (08:22→21:00)
[2020-10-28] MEDS ORDERED: FUROSEMIDE 40MG/4ML VIAL IVP SCH (09:00)
[2020-10-28] MEDS ORDERED: IOHEXOL-350 100 ML BOTTLE ONE (11:20)
[2020-10-28 11:54] VITALS: BP 153/50
[2020-10-28] MEDS: IPRATROPIUM/ALBUTEROL 0.5-3(2.5)MG/3ML NEB NEB PRN (12:22)
[2020-10-28 14:15] LABS: PLATELET ESTIMATE NORMAL
[2020-10-28 16:36] VITALS: BP 154/88
[2020-10-28] MEDS: FUROSEMIDE 40MG/4ML VIAL IVP SCH (17:06)
[2020-10-28 17:31] LABS: CLARITY URINE TURBID (CLEAR); COLOR URINE YELLOW (YELLOW); KETONES URINE NEGATIVE (NEGATIVE); LEUKOCYTE ESTERASE URINE 3+ (NEGATIVE); NITRITE URINE NEGATIVE (NEGATIVE); OCCULT BLOOD URINE 2+ (NEGATIVE); PH URINE 6.5 (4.5-8.0); PROTEIN URINE 3+ (NEGATIVE); SPECIFIC GRAVITY URINE 1.024 (1.005-1.030); UROBILINOGEN URINE 0.2 E.U./dL (0.2-1.0)
[2020-10-28] MEDS: MORPHINE SULFATE 2 MG/ML CPJ (NOT FOR IM USE) IV PRN (21:16)
[2020-10-29] VITALS (7 sets, daily range): BP systolic 120–164; BP diastolic 66–92
[2020-10-29] MEDS: FUROSEMIDE 40MG/4ML VIAL IVP SCH ×3 (00:07→17:35)
[2020-10-29] MEDS: MORPHINE SULFATE 2 MG/ML CPJ (NOT FOR IM USE) IV PRN (02:00)
[2020-10-29 06:30] LABS: CHLORIDE 101 mEq/L (98-107)
[2020-10-29 06:38] LABS: INR 1.2; PHOSPHORUS 3.1 mg/dL (2.5-4.9); PROTHROMBIN TIME 12.7 sec (9.6-11.0)
[2020-10-29 06:39] LABS: LDL CHOLESTEROL 39 mg/dL (5-100)
[2020-10-29] MEDS: BLOOD SUGAR DIAGNOSTIC STRIP TEST SCH ×4 (06:39→21:00)
[2020-10-29 06:41] LABS: HDL CHOLESTEROL 63 mg/dL (40-59)
[2020-10-29 07:17] LABS: BASOPHILS % 0.4 % (0.0-2.0); EOSINOPHILS % 0.3 % (0.0-5.0); HEMOGLOBIN. 11.8 g/dL (12.0-16.0); LYMPHOCYTES % 9.5 % (20.0-50.0); MEAN CORPUSCULAR HEMOGLOBIN 29.4 pg (28.0-32.0); MEAN CORPUSCULAR VOLUME 89.5 fL (81.0-99.0); MEAN PLATELET VOLUME 8.5 fl (7.4-10.4); MONOCYTES % 6.3 % (2.0-8.0); NEUTROPHILS % 83.5 % (40.0-76.0); PLATELET 174 x1000/uL (130-400); RED BLOOD CELL COUNT 4.02 mill/uL (4.2-5.4); RED CELL DISTRIBUTION WIDTH 18.7 % (11.6-14.6)
[2020-10-29] MEDS: INSULIN LISPRO 100 UNITS/ML SUBCUT SCH ×3 (07:34→21:00)
[2020-10-29] MEDS: ENOXAPARIN 100MG/ML SYR SUBCUT SCH ×2 (08:32→22:07)
[2020-10-29] MEDS: FOLIC ACID 1MG TABLET PO SCH (09:18)
[2020-10-29] MEDS: ASPIRIN 81MG EC TABLET PO SCH (09:19)
[2020-10-29] MEDS: LOSARTAN POTASSIUM 100 MG TABLET PO SCH (09:19)
[2020-10-29] MEDS: FERROUS SULFATE 325MG TABLET PO SCH (09:19)
[2020-10-29] MEDS: HYDROCODONE/ACETAMINOPHEN 5/325MG TABLET PO PRN (10:46)
[2020-10-29] MEDS: HYDRALAZINE HCL 50MG TABLET PO SCH ×2 (14:57→22:07)
[2020-10-29] MEDS: SILDENAFIL CITRATE 20MG TABLET PO SCH (22:08)
[2020-10-30] VITALS: BP 128/53
[2020-10-30] MEDS: FUROSEMIDE 40MG/4ML VIAL IVP SCH ×3 (01:26→17:00)
[2020-10-30 04:00] VITALS: BP 134/71
[2020-10-30] MEDS: HYDRALAZINE HCL 50MG TABLET PO SCH ×3 (06:35→21:11)
[2020-10-30] MEDS: SILDENAFIL CITRATE 20MG TABLET PO SCH ×3 (06:35→21:11)
[2020-10-30 06:47] LABS: BASOPHILS % 0.7 % (0.0-2.0); CHLORIDE 102 mEq/L (98-107); EOSINOPHILS % 1.2 % (0.0-5.0); HEMATOCRIT. 31.6 % (36.0-48.0); HEMOGLOBIN. 10.3 g/dL (12.0-16.0); LYMPHOCYTES % 15.1 % (20.0-50.0); MEAN CORPUSCULAR HEMOGLOBIN 28.8 pg (28.0-32.0); MEAN CORPUSCULAR VOLUME 88.6 fL (81.0-99.0); MEAN PLATELET VOLUME 8.6 fl (7.4-10.4); MONOCYTES % 8.3 % (2.0-8.0); NEUTROPHILS % 74.7 % (40.0-76.0); PLATELET 169 x1000/uL (130-400); RED BLOOD CELL COUNT 3.57 mill/uL (4.2-5.4)
[2020-10-30] MEDS: BLOOD SUGAR DIAGNOSTIC STRIP TEST SCH ×4 (07:10→21:04)
[2020-10-30] MEDS: INSULIN LISPRO 100 UNITS/ML SUBCUT SCH ×4 (07:40→21:00)
[2020-10-30 08:00] VITALS: BP_SYST 106; BP_SYST 113; BP_DIAS 66; BP_DIAS 79
[2020-10-30] MEDS: LOSARTAN POTASSIUM 100 MG TABLET PO SCH (09:00)
[2020-10-30] MEDS: FOLIC ACID 1MG TABLET PO SCH (09:43)
[2020-10-30] MEDS: ASPIRIN 81MG EC TABLET PO SCH (09:43)
[2020-10-30] MEDS: ENOXAPARIN 100MG/ML SYR SUBCUT SCH ×2 (09:44→21:11)
[2020-10-30] MEDS: FERROUS SULFATE 325MG TABLET PO SCH (09:54)
[2020-10-30 12:00] VITALS: BP 108/69
[2020-10-30 16:00] VITALS: BP 114/67
[2020-10-30 20:00] VITALS: BP 150/83
[2020-10-30] MEDS: HYDROCODONE/ACETAMINOPHEN 5/325MG TABLET PO PRN (20:21)
[2020-10-31] VITALS: BP 125/64
[2020-10-31] MEDS: FUROSEMIDE 40MG/4ML VIAL IVP SCH ×2 (00:48→09:38)
[2020-10-31 04:00] VITALS: BP 140/81
[2020-10-31] MEDS ORDERED: HYDROCODONE/ACETAMINOPHEN 5/325MG TABLET PO PRN (05:30)
[2020-10-31] MEDS: SILDENAFIL CITRATE 20MG TABLET PO SCH ×2 (05:41→15:52)
[2020-10-31] MEDS: HYDRALAZINE HCL 50MG TABLET PO SCH ×2 (05:41→15:53)
[2020-10-31 06:37] LABS: HEMATOCRIT. 32.1 % (36.0-48.0); HEMOGLOBIN. 10.4 g/dL (12.0-16.0); MEAN CORPUSCULAR HEMOGLOBIN 28.7 pg (28.0-32.0); MEAN CORPUSCULAR VOLUME 88.9 fL (81.0-99.0); MEAN PLATELET VOLUME 8.6 fl (7.4-10.4); PLATELET 160 x1000/uL (130-400); RED BLOOD CELL COUNT 3.61 mill/uL (4.2-5.4); RED CELL DISTRIBUTION WIDTH 18.3 % (11.6-14.6)
[2020-10-31] MEDS: BLOOD SUGAR DIAGNOSTIC STRIP TEST SCH ×3 (06:56→17:10)
[2020-10-31] MEDS: INSULIN LISPRO 100 UNITS/ML SUBCUT SCH ×3 (06:56→17:40)
[2020-10-31 08:00] VITALS: BP 120/71
[2020-10-31] MEDS: ENOXAPARIN 100MG/ML SYR SUBCUT SCH (09:00)
[2020-10-31] MEDS: FERROUS SULFATE 325MG TABLET PO SCH (09:38)
[2020-10-31] MEDS: LOSARTAN POTASSIUM 100 MG TABLET PO SCH (09:39)
[2020-10-31] MEDS: FOLIC ACID 1MG TABLET PO SCH (09:39)
[2020-10-31] MEDS: ASPIRIN 81MG EC TABLET PO SCH (09:39)
[2020-10-31 12:00] VITALS: BP 135/84
[2020-10-31] MEDS ORDERED: CEFTRIAXONE 1,000 MG in DEXTROSE 5% WATER 50 ML IV SCH (13:00)
[2020-10-31 14:25] LABS: PLATELET ESTIMATE NORMAL
[2020-10-31 14:56] VITALS: BP 17/120
[2020-10-31 16:00] VITALS: BP 116/70
[2020-10-31] MEDS ORDERED: FUROSEMIDE 40MG/4ML VIAL IVP SCH (17:00)
== END 2020-10-31 19:35 | DRG 291 ==
LOC: ER 15:17 → 8WST 19:37 → ENRESERV 22:59 → SUPCPDRO 23:00
PROVIDERS: ADMIT Internal Medicine; ATTEND Internal Medicine
PROC: B5181ZA Fluoroscopy of Superior Vena Cava using Low Osmolar Contrast, Guidance (ICD-10-PCS; principal; 2020-10-28)
PROC: 02HV33Z Insertion of Infusion Device into Superior Vena Cava, Percutaneous Approach (ICD-10-PCS; 2020-10-28)
PROC: B548ZZA Ultrasonography of Superior Vena Cava, Guidance (ICD-10-PCS; 2020-10-28)
DX: I13.0 Hypertensive heart and chronic kidney disease with heart failure and stage 1 through stage 4 chronic kidney disease, or unspecified chronic kidney disease (principal); I50.33 Acute on chronic diastolic (congestive) heart failure; J18.9 Pneumonia, unspecified organism; G81.94 Hemiplegia, unspecified affecting left nondominant side; E87.1 Hypo-osmolality and hyponatremia; E44.0 Moderate protein-calorie malnutrition; D68.59 Other primary thrombophilia; I48.20 Chronic atrial fibrillation, unspecified; I48.92 Unspecified atrial flutter; J44.0 Chronic obstructive pulmonary disease with (acute) lower respiratory infection; N39.0 Urinary tract infection, site not specified; T82.838A Hemorrhage due to vascular prosthetic devices, implants and grafts, initial encounter; Z68.41 Body mass index [BMI] 40.0-44.9, adult; N18.9 Chronic kidney disease, unspecified; E11.65 Type 2 diabetes mellitus with hyperglycemia; E11.22 Type 2 diabetes mellitus with diabetic chronic kidney disease; E66.9 Obesity, unspecified; E78.5 Hyperlipidemia, unspecified; I25.10 Atherosclerotic heart disease of native coronary artery without angina pectoris; B96.4 Proteus (mirabilis) (morganii) as the cause of diseases classified elsewhere; E78.00 Pure hypercholesterolemia, unspecified; Z20.822 Contact with and (suspected) exposure to COVID-19; R00.1 Bradycardia, unspecified; G89.4 Chronic pain syndrome; I27.20 Pulmonary hypertension, unspecified; R09.02 Hypoxemia; M10.9 Gout, unspecified; Y83.8 Other surgical procedures as the cause of abnormal reaction of the patient, or of later complication, without mention of misadventure at the time of the procedure; Z79.899 Other long term (current) drug therapy; Z86.16 Personal history of COVID-19; Z86.73 Personal history of transient ischemic attack (TIA), and cerebral infarction without residual deficits; Z88.8 Allergy status to other drugs, medicaments and biological substances; Z71.3 Dietary counseling and surveillance; Y92.89 Other specified places as the place of occurrence of the external cause
CPT/HCPCS: 36415; 36573; 36600; 71045; 71275; 80048; 80053; 80061; 80076; 81003; 82375; 82805; 82962; 83036; 83735; 83880; 84100; 84439; 84443; 85025; 87077; 87186; 87426; 93005; 93306; 93970; 94640; 97161; 99291; A6261; C1725; C1893; J0696; J1650; J1815; J1940; J2270; J3490; J7030; J7060; Q9967; A4315